=== PATIENT | female | born 1945 | race Caucasian/White ===

== ENCOUNTER 2018-04-16 14:35 | Outpatient (CLI) | payer MEDICARE ==
--- NOTE | 2018-04-17 10:54 | MMO ---
BILATERAL SCREENING MAMMOGRAMS: DATE: 04/16/18. HISTORY: A 73-year-old female patient presenting for screening mammography. COMPARISON: 03/04/17, 02/21/16, 01/30/15, and 01/27/14. FINDINGS: The breasts are predominantly fatty replaced. No dominant mass or suspicious grouping of microcalcif ications is seen in either breast. No architectural distortion is seen. IMPRESSION: BI-RADS category 1, negative mammograms. Routine annual mammographic screening is recommended. BIRADS 1: Negative Routine annual screening mammography (for women over age 40) POS: JU
== END 2018-04-16 14:36 | disposition home or self-care (01) ==
LOC: SCSMAMMO 14:35
PROVIDERS: ATTEND Family Medicine
DX: Z12.31 Encounter for screening mammogram for malignant neoplasm of breast (principal)
CPT/HCPCS: 77067